=== PATIENT | female | born 1955 | race Hispanic/Latino ===

== ENCOUNTER 2021-03-13 10:48 | Outpatient (CLI) | payer MEDICARE, OTHER | END 2021-03-13 10:49 | disposition home or self-care (01) | LOC: BICRAD 10:48 | PROVIDERS: ATTEND Neurological Surgery | DX: M43.16 Spondylolisthesis, lumbar region (principal); Z96.7 Presence of other bone and tendon implants | CPT/HCPCS: 72100 ==

== ENCOUNTER 2022-02-19 07:50 | Outpatient (CLI) | payer OTHER ==
[2022-02-19] MEDS ORDERED: ISOVUE-370 76% 1 ML ONE (14:25)
== END 2022-02-19 07:51 | disposition home or self-care (01) ==
LOC: BICCT 07:50
PROVIDERS: ATTEND Internal Medicine
DX: K86.89 Other specified diseases of pancreas (principal); D35.02 Benign neoplasm of left adrenal gland; K76.0 Fatty (change of) liver, not elsewhere classified
CPT/HCPCS: 74170; 82565

== ENCOUNTER 2023-07-06 09:07 | Outpatient (CLI) | payer MEDICARE | END 2023-07-06 09:08 | disposition home or self-care (01) | LOC: BICCT 09:07 | PROVIDERS: ATTEND Internal Medicine | DX: Z12.31 Encounter for screening mammogram for malignant neoplasm of breast (principal); Z12.2 Encounter for screening for malignant neoplasm of respiratory organs; F17.218 Nicotine dependence, cigarettes, with other nicotine-induced disorders; S22.42XD Multiple fractures of ribs, left side, subsequent encounter for fracture with routine healing; E27.8 Other specified disorders of adrenal gland | CPT/HCPCS: 71271; 77063; 77067 ==